=== PATIENT | male | born 1995 | race Caucasian/White ===

== ENCOUNTER 2025-02-08 09:16 | Day surgery (SDC) | payer BC ==
[~2025-02-08 09:16] MED LIST: Sodium Chloride 0.9% 10 ML Syringe FLUSH PRN; Sodium Chloride 0.9% 10 ML Syringe FLUSH SCH
[2025-02-08] MEDS: Lactated Ringers 1,000 ML IV SCH (09:30)
[2025-02-08] MEDS ORDERED: Acetaminophen 325 MG Tab PO ONE (10:50)
[2025-02-08] MEDS ORDERED: propofoL 500 MG/50 ML 50 ML ONE (10:59)
[2025-02-08] MEDS ORDERED: fentaNYL 250 MCG/5 ML SDV ONE (10:59)
[2025-02-08] MEDS ORDERED: Midazolam 1 MG/ML 2 ML SDV ONE (10:59)
[2025-02-08] MEDS ORDERED: Ondansetron 4 MG/2 ML SDV ONE (11:01)
[2025-02-08] MEDS ORDERED: Lidocaine 1% 5 ML VIAL ONE (11:01)
[2025-02-08] MEDS ORDERED: Dexamethasone 4 MG/ML 5 ML MDV ONE (11:01)
[2025-02-08] MEDS ORDERED: ceFAZolin 2 GM Vial ONE (12:15)
[2025-02-08] MEDS: EPINEPHrine 1 MG/ML SDV ONE (12:46)
[2025-02-08] MEDS: Bupivacaine 0.25% 10 ML SDV ONE (12:46)
[2025-02-08] MEDS ORDERED: Ketorolac 30 MG/ML SDV ONE (12:54)
[2025-02-08] MEDS ORDERED: HYDROmorphone 0.5 MG/0.5 ML Syringe IVPUSH PRN (13:25)
[2025-02-08] MEDS ORDERED: fentaNYL 100 MCG/2 ML SDV IVPUSH PRN (13:25)
[2025-02-08] MEDS ORDERED: Ondansetron 4 MG/2 ML SDV IVPUSH PRN (13:25)
[2025-02-08] MEDS: Acetaminophen/HYDROcodone 325-5 MG Tab PO PRN (13:50)
== END 2025-02-08 14:40 | disposition home or self-care (01) ==
LOC: JD.SDS 09:16
PROVIDERS: ATTEND Orthopaedic Surgery
DX: S83.241A Other tear of medial meniscus, current injury, right knee, initial encounter (principal); Z87.891 Personal history of nicotine dependence; X58.XXXA Exposure to other specified factors, initial encounter
CPT/HCPCS: 29881; A9270; J0171; J0665; J0690; J1100; J1885; J2003; J2250; J2405; J2704; J3010; J7120; 01400